=== PATIENT | male | born 1995 | race Caucasian/White ===

== ENCOUNTER 2018-05-17 22:36 | Emergency (ER) | payer OTHER ==
[~2018-05-17] VITALS: Ht 170.2 cm; Wt 80.7 kg
[2018-05-17 22:53] VITALS: Ht 170.2 cm; Wt 80.7 kg
[2018-05-18 01:11] VITALS: BP 127/74
== END 2018-05-18 01:11 | disposition home or self-care (01) ==
LOC: ED 22:36
DX: J04.0 Acute laryngitis (principal)
CPT/HCPCS: J1100